=== PATIENT | female | born 1985 | race Caucasian/White ===

== ENCOUNTER 2016-04-14 22:35 | Emergency (ER) | payer SELFPAY ==
[2016-04-15] MEDS ORDERED: ONDANSETRON ODT 4 MG TAB ONE (00:23)
[2016-04-15] MEDS ORDERED: OXYCODONE/APAP 5/325 TAB ONE (00:23)
[2016-04-15] MEDS ORDERED: LIDOCAINE/EPI 1% MDV 50 ML ONE (00:23)
== END 2016-04-15 01:23 | disposition home or self-care (01) ==
LOC: ER 22:35
DX: L02.01 Cutaneous abscess of face (principal); L03.211 Cellulitis of face
CPT/HCPCS: 36415; 80053; 85025